=== PATIENT | male | born 1955 | race Two or more races ===

== ENCOUNTER 2017-10-06 20:46 | Emergency (ER) | payer SELFPAY ==
--- NOTE | 2017-10-06 21:06 | EDM.PDOC ---
ED HPI GENERAL MEDICAL PROBLEM - General Chief Complaint: Genitourinary Problem Stated Complaint: UNABLE TO URINE Time Seen by Provider: 10/06/17 21:01 - History of Present Illness INITIAL COMMENTS - FREE TEXT/NARRATIVE: HISTORY AND PHYSICAL: History of present illness: Patient 62-year-old male history of prostate problems who presents with concern of urinary retention he states he has not been able urinate for approximately 3 hours she's had some small urination prior to that he denies fever chills nausea vomiting or other complaints Review of systems: As per history of present illness and below otherwise all systems reviewed and negative. Past medical history: As per history of present illness and as reviewed below otherwise noncontributory. Surgical history: As per history of present illness and as reviewed below otherwise noncontributory. Social history: No reported history of drug or alcohol abuse. Family history: As per history of present illness and as reviewed below otherwise noncontributory. Physical exam: HEENT: Atraumatic, normocephalic, pupils reactive, negative for conjunctival pallor or scleral icterus, mucous membranes moist, throat clear, neck supple, nontender, trachea midline. Lungs: Clear to auscultation, breath sounds equal bilaterally, chest nontender. Heart: S1S2, regular, negative for clicks, rubs, or JVD. Abdomen: Soft, nondistended, mild tenderness suprapubically no rebound no guarding. Negative for masses or hepatosplenomegaly. Negative for costovertebral tenderness. Pelvis: Stable nontender. Genitourinary: Deferred. Rectal: Deferred. Extremities: Atraumatic, negative for cords or calf pain. Neurovascular unremarkable. Neuro: Awake, alert, oriented. Cranial nerves II through XII unremarkable. Cerebellum unremarkable. Motor and sensory unremarkable throughout. Exam nonfocal. Diagnostics: CBC CMP UA urine culture and sensitivity Therapeutics: Simpson catheter with leg bag Impression: #1 Urinary retention Definitive disposition and diagnosis as appropriate pending reevaluation and review of above. hypogastric Pain Score (Numeric/FACES): 4 - Related Data Allergies Allergy/AdvReac Type Severity Reaction Status Date / Time No Known Allergies Allergy Verified 10/06/17 21:54 ED ROS GENERAL - Review of Systems Review Of Systems: ROS reveals no pertinent complaints other than HPI. ED EXAM, GENERAL - Physical Exam Exam: See Below (See dictation) Course - Vital Signs Last Recorded V/S: Last Vital Signs Temp 37.4 C 10/06/17 20:46 Pulse 81 10/06/17 20:46 Resp 18 10/06/17 20:46 BP 184/92 H 10/06/17 20:46 Pulse Ox 95 10/06/17 20:46 - Orders/Labs/Meds Orders: Active Orders 24 hr Category Date Time Status Simpson Catheter Insertion [Insert Urinary Catheter] [OM. Care 10/06/17 21:15 Ordered PC] Q24H Simpson Catheter Insertion [Insert Urinary Catheter] [OM. Care 10/06/17 21:15 Ordered PC] Q24H Urinary Catheter Assessment [RC] ASDIRECTED Care 10/06/17 21:03 Active Urinary Catheter Assessment [RC] ASDIRECTED Care 10/06/17 21:03 Active CULTURE URINE [RM] Stat Lab 10/06/17 21:45 Ordered UA W/MICROSCOPIC [URIN] Stat Lab 10/06/17 21:45 Ordered Labs: Laboratory Tests 10/06/17 10/06/17 10/06/17 Range/Units 21:13 21:13 21:45 WBC 10.30 (4.0-11.0) K/uL RBC 4.63 (4.50-5.90) M/uL Hgb 14.0 (13.0-17.0) g/dL Hct 41.2 (38.0-50.0) % MCV 89.0 (80.0-98.0) fL MCH 30.2 (27.0-32.0) pg MCHC 34.0 (31.0-37.0) g/dL RDW Std Deviation 42.6 (28.0-62.0) fl RDW Coeff of Alex 13 (11.0-15.0) % Plt Count 243 (150-400) K/uL MPV 9.50 (7.40-12.00) fL Neut % (Auto) 54.8 (48.0-80.0) % Lymph % (Auto) 37.7 (16.0-40.0) % [place] % (Auto) 5.5 (0.0-15.0) % Eos % (Auto) 1.7 (0.0-7.0) % Baso % (Auto) 0.3 (0.0-1.5) % Neut # (Auto) 5.7 (1.4-5.7) K/uL Lymph # (Auto) 3.9 H (0.6-2.4) K/uL [place] # (Auto) 0.6 (0.0-0.8) K/uL Eos # (Auto) 0.2 (0.0-0.7) K/uL Baso # (Auto) 0.0 (0.0-0.1) K/uL Nucleated RBC % 0.0 /100WBC Nucleated RBCs # 0 K/uL Sodium 136 (136-148) mmol/L Potassium 3.4 L (3.5-5.1) mmol/L Chloride 102 (98-107) mmol/L Carbon Dioxide 23.1 (21.0-32.0) mmol/L BUN 12 (7.0-18.0) mg/dL Creatinine 0.9 (0.8-1.3) mg/dL Est Cr Clr Drug Dosing TNP Estimated GFR (MDRD) > 60.0 ml/min Glucose 120 H (74-106) mg/dL Calcium 8.8 (8.5-10.1) mg/dL Total Bilirubin 0.2 (0.2-1.0) mg/dL AST 16 (15-37) IU/L ALT 22 (14-63) IU/L Alkaline Phosphatase 54 (46-116) U/L Total Protein 8.0 (6.4-8.2) g/dL Albumin 3.7 (3.4-5.0) g/dL Globulin 4.3 H (2.0-3.5) g/dL Albumin/Globulin Ratio 0.9 L (1.3-2.8) Urine Color YELLOW Urine Appearance HAZY Urine pH 6.0 (5.0-8.0) Ur Specific [place] <= 1.005 (1.001-1.035) Urine Protein NEGATIVE (NEGATIVE) mg/dL Urine Glucose (UA) NEGATIVE (NEGATIVE) mg/dL Urine Ketones NEGATIVE (NEGATIVE) mg/dL Urine Occult Blood MODERATE (NEGATIVE) Urine Nitrite NEGATIVE (NEGATIVE) Urine Bilirubin NEGATIVE (NEGATIVE) Urine Urobilinogen 0.2 (<2.0) EU/dL Ur Leukocyte Esterase MODERATE (NEGATIVE) Urine RBC 2-4 (0-2/HPF) Urine WBC 20-25 (0-5/HPF) Ur Epithelial Cells RARE (NONE-FEW) Urine Bacteria 1+ H (NEGATIVE) Departure - Departure Time of Disposition: 22:46 Disposition: Home, Self-Care 01 Condition: Good Clinical Impression: UTI, Urinary tract infectious disease, Urinary retention - Discharge Information Referrals: PCP,Unknown [Primary Care Provider] - Forms: ED Department Discharge Additional Instructions: The following information is given to patients seen in the emergency department who are being discharged to home. This information is to outline your options for follow-up care. We provide all patients seen in our emergency department with a follow-up referral. The need for follow-up, as well as the timing and circumstances, are variable depending upon the specifics of your emergency department visit. If you don't have a primary care physician on staff, we will provide you with a referral. We always advise you to contact your personal physician following an emergency department visit to inform them of the circumstance of the visit and for follow-up with them and/or the need for any referrals to a consulting specialist. The emergency department will also refer you to a specialist when appropriate. This referral assures that you have the opportunity for followup care with a specialist. All of these measure are taken in an effort to provide you with optimal care, which includes your followup. Under all circumstances we always encourage you to contact your private physician who remains a resource for coordinating your care. When calling for followup care, please make the office aware that this follow-up is from your recent emergency room visit. If for any reason you are refused follow-up, please contact the [facility] emergency department at and asked to speak to the emergency department charge nurse. [facility] [address] [place] [id number] Cipro as prescribed leg bag Simpson as directed follow-up urology above call to schedule appointment return as needed as discussed - My Orders Last 24 Hours: My Active Orders 10/06/17 21:03 Urinary Catheter Assessment [RC] ASDIRECTED Urinary Catheter Assessment [RC] ASDIRECTED 10/06/17 21:15 Simpson Catheter Insertion [Insert Urinary Catheter] [OM.PC] Q24H Simpson Catheter Insertion [Insert Urinary Catheter] [OM.PC] Q24H 10/06/17 21:45 CULTURE URINE [RM] Stat UA W/MICROSCOPIC [URIN] Stat - Assessment/Plan Last 24 Hours: My Active Orders 10/06/17 21:03 Urinary Catheter Assessment [RC] ASDIRECTED Urinary Catheter Assessment [RC] ASDIRECTED 10/06/17 21:15 Simpson Catheter Insertion [Insert Urinary Catheter] [OM.PC] Q24H Simpson Catheter Insertion [Insert Urinary Catheter] [OM.PC] Q24H 10/06/17 21:45 CULTURE URINE [RM] Stat UA W/MICROSCOPIC [URIN] Stat
[2017-10-06 21:41] LABS: CHLORIDE,CL 102 mmol/L (98-107); SODIUM,NA 136 mmol/L (136-148)
== END 2017-10-06 23:15 | disposition home or self-care (01) ==
LOC: MW.ED 20:46
DX: N39.0 Urinary tract infection, site not specified (principal)
CPT/HCPCS: 36415; 80053; 81001; 85025; 87086; 87088; 87186; 99283

== ENCOUNTER 2017-10-07 21:03 | Emergency (ER) | payer SELFPAY | END 2017-10-07 21:30 | disposition left against medical advice (07) | LOC: MW.ED 21:03 | DX: Z53.21 Procedure and treatment not carried out due to patient leaving prior to being seen by health care provider (principal) ==

== ENCOUNTER 2017-10-14 15:20 | Inpatient (IN) | payer OTHER ==
[~2017-10-14 15:20] MED LIST: Ampicillin 2 GM in Sodium Chloride 0.9% 100 ML IV SCH; Lactated Ringers 1,000 ML IV SCH; Sodium Chloride 0.9% 10 ML Syringe FLUSH PRN; Sodium Chloride 0.9% 2.5 ML Syringe FLUSH PRN
[2017-10-14] MEDS: Ampicillin 2 GM in Sodium Chloride 0.9% 100 ML IV SCH ×2 (17:13→22:09)
[2017-10-15] MEDS: Ampicillin 2 GM in Sodium Chloride 0.9% 100 ML IV SCH ×4 (03:57→21:02)
[2017-10-15 06:23] LABS: CHLORIDE,CL 107 mmol/L (98-107); SODIUM,NA 140 mmol/L (136-148)
--- NOTE | 2017-10-15 08:57 | PCM.PREANE ---
Preanesthetic Assessment - Procedure Proposed Procedure: TURP - Anesthesia/Transfusion/Family Hx Anesthesia History: Prior Anesthesia Without Reaction Family History of Anesthesia Reaction: No Transfusion History: No Prior Transfusion(s) Intubation History: Unknown - Review of Systems General: No Symptoms Pulmonary: No Symptoms Cardiovascular: No Symptoms Gastrointestinal: No Symptoms Neurological: No Symptoms Other: Reports: None - Physical Assessment NPO Status Date: 10/14/17 NPO Status Time: 23:00 O2 Sat by Pulse Oximetry: 98 Respiratory Rate: 16 Vital Signs: Last Vital Signs Temp 98.0 F 10/15/17 08:46 Pulse 62 10/15/17 08:46 Resp 16 10/15/17 08:46 BP 145/77 H 10/15/17 08:46 Pulse Ox 98 10/15/17 08:46 Height: 6 ft Weight: 196 lb 6.91 oz ASA Class: 2 Mental Status: Alert & Oriented x3 Airway Class: Mallampati = 1 Dentition: Reports: Missing Tooth/Teeth, Caries Thyro-Mental Finger Breadths: 3 Mouth Opening Finger Breadths: 3 ROM/Head Extension: Limited/Partial (short neck) - Lab Values: Laboratory Last Values WBC 8.01 K/uL (4.0-11.0) 10/15/17 05:30 RBC 4.59 M/uL (4.50-5.90) 10/15/17 05:30 Hgb 13.7 g/dL (13.0-17.0) 10/15/17 05:30 Hct 41.3 % (38.0-50.0) 10/15/17 05:30 MCV 90.0 fL (80.0-98.0) 10/15/17 05:30 MCH 29.8 pg (27.0-32.0) 10/15/17 05:30 MCHC 33.2 g/dL (31.0-37.0) 10/15/17 05:30 RDW Std Deviation 43.7 fl (28.0-62.0) 10/15/17 05:30 RDW Coeff of Alex 13 % (11.0-15.0) 10/15/17 05:30 Plt Count 210 K/uL (150-400) 10/15/17 05:30 MPV 10.50 fL (7.40-12.00) 10/15/17 05:30 Neut % (Auto) 56.7 % (48.0-80.0) 10/15/17 05:30 Lymph % (Auto) 31.8 % (16.0-40.0) 10/15/17 05:30 [place] % (Auto) 7.4 % (0.0-15.0) 10/15/17 05:30 Eos % (Auto) 3.7 % (0.0-7.0) 10/15/17 05:30 Baso % (Auto) 0.4 % (0.0-1.5) 10/15/17 05:30 Neut # (Auto) 4.5 K/uL (1.4-5.7) 10/15/17 05:30 Lymph # (Auto) 2.6 K/uL (0.6-2.4) H 10/15/17 05:30 [place] # (Auto) 0.6 K/uL (0.0-0.8) 10/15/17 05:30 Eos # (Auto) 0.3 K/uL (0.0-0.7) 10/15/17 05:30 Baso # (Auto) 0.0 K/uL (0.0-0.1) 10/15/17 05:30 Nucleated RBC % 0.0 /100WBC 10/15/17 05:30 Nucleated RBCs # 0 K/uL 10/15/17 05:30 Sodium 140 mmol/L (136-148) 10/15/17 05:30 Potassium 4.3 mmol/L (3.5-5.1) 10/15/17 05:30 Chloride 107 mmol/L (98-107) 10/15/17 05:30 Carbon Dioxide 28.9 mmol/L (21.0-32.0) 10/15/17 05:30 BUN 15 mg/dL (7.0-18.0) 10/15/17 05:30 Creatinine 0.9 mg/dL (0.8-1.3) 10/15/17 05:30 Est Cr Clr Drug Dosing 91.01 mL/min 10/15/17 05:30 Estimated GFR (MDRD) > 60.0 ml/min 10/15/17 05:30 Glucose 108 mg/dL (74-106) H 10/15/17 05:30 Calcium 8.8 mg/dL (8.5-10.1) 10/15/17 05:30 - Allergies Allergies/Adverse Reactions: Allergies Allergy/AdvReac Type Severity Reaction Status Date / Time No Known Allergies Allergy Verified 10/08/17 07:37 - Blood Blood Available: No Product(s) Available: None - Anesthesia Plan Pre-Op Medication Ordered: None - Acknowledgements Anesthesia Type Planned: Spinal Pt an Appropriate Candidate for the Planned Anesthesia: Yes Alternatives and Risks of Anesthesia Discussed w Pt/Guardian: Yes Pt/Guardian Understands and Agrees with Anesthesia Plan: Yes PreAnesthesia Questionnaire - Past Health History Medical/Surgical History: Denies Medical/Surgical History HEENT History: Reports: None Cardiovascular History: Reports: None Respiratory History: Reports: None Gastrointestinal History: Reports: None Genitourinary History: Reports: None Musculoskeletal History: Reports: None Neurological History: Reports: None Psychiatric History: Reports: None Endocrine/Metabolic History: Reports: None Hematologic History: Reports: None Immunologic History: Reports: None Oncologic (Cancer) History: Reports: None Dermatologic History: Reports: None - Infectious Disease History Infectious Disease History: Reports: None - Past Surgical History Head Surgeries/Procedures: Reports: None Male Surgical History: Reports: None - SUBSTANCE USE Smoking Status *Q: Never Smoker Second Hand Smoke Exposure: No Recreational Drug Use History: No - HOME MEDS Home Medications: Home Meds Ciprofloxacin HCl [Cipro] 500 mg PO BID 10/08/17 [History] - CURRENT (IN HOUSE) MEDS Current Meds: Current Medications Lactated Ringer's (Ringers, Lactated) 1,000 mls @ 50 mls/hr IV ASDIRECTED [facility] Last Admin: 10/14/17 17:08 Dose: 50 mls/hr Ampicillin Sodium 2 gm/ Sodium (Chloride) 100 mls @ 200 mls/hr IV Q6H [facility] Last Admin: 10/15/17 03:57 Dose: 200 mls/hr Tobramycin 120 mg/ Sodium (Chloride) 53 mls @ 106 mls/hr IV Q12H [facility] Last Admin: 10/15/17 05:40 Dose: 106 mls/hr Sodium Chloride (Saline Flush) 10 ml FLUSH ASDIRECTED PRN PRN Reason: Keep Vein Open Sodium Chloride (Saline Flush) 2.5 ml FLUSH ASDIRECTED PRN PRN Reason: Keep Vein Open Discontinued Medications Ampicillin Sodium 2 gm/ Sodium (Chloride) 100 mls @ 200 mls/hr IV Q6H [facility] Last Admin: 10/14/17 17:47 Dose: Not Given Tobramycin 120 mg/ Sodium (Chloride) 103 mls @ 103 mls/hr IV Q12H [facility] Last Admin: 10/14/17 17:47 Dose: Not Given
[2017-10-15] MEDS ORDERED: Midazolam 1 MG/ML 2 ML SDV ONE (09:00)
[2017-10-15] MEDS ORDERED: Lidocaine 2% 5 ML SDV ONE (09:00)
[2017-10-15] MEDS ORDERED: Propofol 200 MG/20 ML SDV ONE (09:01)
[2017-10-15] MEDS ORDERED: fentaNYL 100 MCG/2 ML SDV ONE (09:01)
[2017-10-15] MEDS ORDERED: ePHEDrine 50 MG/ML SDV ONE (09:02)
[2017-10-15] MEDS ORDERED: Belladonna Alkaloids/Opium 16.2-30 MG Supp RECTAL PRN (11:57)
[2017-10-15] MEDS: D5 1/2 NS w/ 20 mEq/L KCl 1,000 ML IV SCH (13:14)
[2017-10-15] MEDS: Bacitracin Oint 28.35 GM Tube TOP SCH ×2 (13:15→21:00)
--- NOTE | 2017-10-15 13:24 | OR ---
SURGEON: Nicole Fleming M.D. DATE OF PROCEDURE: 10/15/2017 PREOPERATIVE DIAGNOSIS: Urine retention secondary to benign prostatic hypertrophy. POSTOPERATIVE DIAGNOSIS: Urine retention secondary to benign prostatic hypertrophy. OPERATION: TURP. DESCRIPTION OF THE PROCEDURE: The patient was given spinal anesthesia, placed in dorsal lithotomy position, prepped and draped in sterile drapes. The 28-Portuguese resectoscope was introduced into the bladder without difficulty. The inside of the bladder was examined and was normal. The prostate was then resected in the usual manner starting with the floor going on laterally and anteriorly. At the end of the resection, all prostatic chips were removed. Both ureteral orifices were intact. The area of the external sphincter was intact. Estimated blood loss was under 200 mL. The patient tolerated the procedure well and left the room in good condition. LUCIA / CHERISE /[id number]
[2017-10-15] MEDS: Docusate Sodium 100 MG Cap PO SCH (20:58)
[2017-10-16] MEDS: D5 1/2 NS w/ 20 mEq/L KCl 1,000 ML IV SCH (00:15)
[2017-10-16] MEDS: Ampicillin 2 GM in Sodium Chloride 0.9% 100 ML IV SCH ×4 (04:07→21:31)
[2017-10-16] MEDS: Bacitracin Oint 28.35 GM Tube TOP SCH ×3 (05:59→21:31)
[2017-10-16] MEDS: Docusate Sodium 100 MG Cap PO SCH ×2 (08:33→21:31)
--- NOTE | 2017-10-16 08:39 | PCM48HPAN ---
Post Anesthesia Note - EVALUATION WITHIN 48HRS OF ANESTHETIC Vital Signs in Normal Range: Yes Patient Participated in Evaluation: Yes Respiratory Function Stable: Yes Airway Patent: Yes Cardiovascular Function Stable: Yes Hydration Status Stable: Yes Pain Control Satisfactory: Yes Nausea and Vomiting Control Satisfactory: Yes Mental Status Recovered: Yes Resp Rate: 18
--- NOTE | 2017-10-16 09:13 | PCM.SN ---
- Free Text/Narrative Note: Doing well
--- NOTE | 2017-10-16 09:20 | PCM.SN ---
- Free Text/Narrative Note: Justification note Had a catheter in , has a tur drip running , needs IV antibiotics
[2017-10-16] MEDS ORDERED: Sodium Chloride 0.9% 10 ML Syringe FLUSH PRN (09:28)
[2017-10-16] MEDS ORDERED: Sodium Chloride 0.9% 2.5 ML Syringe FLUSH PRN (09:28)
[2017-10-17] MEDS: Ampicillin 2 GM in Sodium Chloride 0.9% 100 ML IV SCH ×2 (03:30→09:15)
[2017-10-17] MEDS: Bacitracin Oint 28.35 GM Tube TOP SCH (05:29)
[2017-10-17] MEDS: Docusate Sodium 100 MG Cap PO SCH (09:14)
--- NOTE | 2017-10-17 13:42 | DISCH ---
DATE OF DISCHARGE: PRIMARY CARE PHYSICIAN: Johnathon PCP HOSPITAL COURSE: A 62-year-old, who was seen in the office with urinary retention secondary to BPH. Arrangements were made for him to come and have a TURP, which he had done on October 15. Postoperatively, did well. The catheter was taken out on the second postop day. He was discharged on the second postop day. DISCHARGE MEDICATIONS: 1. Macrobid 100 mg twice a day for one week. 2. Colace 100 mg one p.o. b.i.d. for one month. Pathology is still pending. LUCIA LUONG /[id number]
== END 2017-10-17 13:30 | disposition home or self-care (01) | DRG 714 ==
LOC: MW.SDS 15:20 → MW.MS 15:23
PROVIDERS: ADMIT Urology; ATTEND Urology
PROC: 0VT08ZZ Resection of Prostate, Via Natural or Artificial Opening Endoscopic (ICD-10-PCS; principal; 2017-10-14)
DX: N40.1 Benign prostatic hyperplasia with lower urinary tract symptoms (principal); R33.8 Other retention of urine
CPT/HCPCS: 36415; 80048; 84132; 84295; 85018; 85025; 88305; A9270-GY; J0290; J2250; J2704; J3010; J3260; J3480; J7030; J7050; J7120

== ENCOUNTER 2018-10-17 10:26 | Emergency (ER) | payer MEDICARE, OTHER ==
[2018-10-17] MEDS ORDERED: Sodium Chloride 0.9% 1,000 ML IV ONE (11:05)
--- NOTE | 2018-10-17 11:14 | EDM.PDOC ---
ED HPI GENERAL MEDICAL PROBLEM - General Chief Complaint: General Stated Complaint: DIABETES Time Seen by Provider: 10/17/18 11:04 Source of Information: Reports: Patient, [employer] History Limitations: Reports: Language Barrier - History of Present Illness INITIAL COMMENTS - FREE TEXT/NARRATIVE: HISTORY AND PHYSICAL: History of present illness: Patient is solely speaking and presents with a friend who is translating for patient. Etymology Professor was offered but patient declines. Patient is a 63-year-old male presents to the ED today for concern of diabetes. Patient states over the past month he has noticed worsening increase in thirst and feels as if his mouth is dry. Patient denies any other symptoms at this time. Patient states he has a history of urinary tract infection but that denies any other health history. Patient denies fever, chills, chest pain, shortness of breath, or cough. Denies headache, neck stiff ness, change in vision, syncope, or near syncope. Denies nausea, vomiting, abdominal pain, diarrhea, constipation, or dysuria. Has not noted any blood in urine or stool. Patient has been eating and drinking appropriately. Review of systems: As per history of present illness and below otherwise all systems reviewed and negative. Past medical history: As per history of present illness and as reviewed below otherwise noncontributory. Surgical history: As per history of present illness and as reviewed below otherwise noncontributory. Social history: See social history for further information Family history: As per history of present illness and as reviewed below otherwise noncontributory. Physical exam: General: Patient is alert, oriented, and in no acute distress. Patient sitting comfortably on exam table. HEENT: Atraumatic, normocephalic, pupils equal and reactive bilaterally, negative for conjunctival pallor or scleral icterus, mucous membranes dry, TMs normal bilaterally, throat clear, neck supple, nontender, trachea midline. No drooling or trismus noted. No meningeal signs. No hot potato voice noted. Lungs: Clear to auscultation, breath sounds equal bilaterally, chest nontender. Heart: S1S2, regular rate and rhythm without overt murmur Abdomen: Soft, nondistended, nontender. Negative for masses or hepatosplenomegaly. Negative for costovertebral tenderness. Pelvis: Stable nontender. Genitourinary: Deferred. Rectal: Deferred. Skin: Intact, warm, dry. No lesions or rashes noted. Extremities: Atraumatic, negative for cords or calf pain. Neurovascular unremarkable. Neuro: Awake, alert, oriented. Cranial nerves II through XII unremarkable. Cerebellum unremarkable. Motor and sensory unremarkable throughout. Exam nonfocal. Notes: Dr. Rooney verbally involved in patient care Discussed the importance for follow-up to primary care provider. Voices understanding and is agreeable to plan of care. Denies any further questions or concerns at this time. Diagnostics: Bedside glucose, CBC, CMP, UA, blood ketone, ABG Therapeutics: Saline Prescription: Metformin Impression: Diabetes, new diagnosis Plan: 1. Take medication as prescribed. 2. Follow-up with primary care provider as discussed. 3. Return to the ED as needed and as discussed. Definitive disposition and diagnosis as appropriate pending reevaluation and review of above. - Related Data Allergies Allergy/AdvReac Type Severity Reaction Status Date / Time No Known Allergies Allergy Verified 10/17/18 10:59 Home Meds: Home Meds . [No Known Home Meds] 10/17/18 [History] Past Medical History - Past Health History Medical/Surgical History: Denies Medical/Surgical History HEENT History: Reports: None Cardiovascular History: Reports: None Respiratory History: Reports: None Gastrointestinal History: Reports: None Genitourinary History: Reports: None Musculoskeletal History: Reports: None Neurological History: Reports: None Psychiatric History: Reports: None Endocrine/Metabolic History: Reports: None Hematologic History: Reports: None Immunologic History: Reports: None Oncologic (Cancer) History: Reports: None Dermatologic History: Reports: None - Infectious Disease History Infectious Disease History: Reports: None - Past Surgical History Head Surgeries/Procedures: Reports: None GI Surgical History: Reports: Hernia, Inguinal Male Surgical History: Reports: None Social & Family History - Family History Family Medical History: Noncontributory - Tobacco Use Smoking Status *Q: Never Smoker - Caffeine Use Caffeine Use: Reports: None - Recreational Drug Use Recreational Drug Use: No ED ROS GENERAL - Review of Systems Review Of Systems: ROS reveals no pertinent complaints other than HPI. ED EXAM, GENERAL - Physical Exam Exam: See Below (See dictation) Course - Vital Signs Last Recorded V/S: Last Vital Signs Temp 36.5 C 10/17/18 10:54 Pulse 67 10/17/18 10:54 Resp 18 10/17/18 10:54 BP 153/76 H 10/17/18 10:54 Pulse Ox 96 10/17/18 10:54 - Orders/Labs/Meds Orders: Active Orders 24 hr Category Date Time Status Glucose [Blood Glucose Check, Bedside] [RC] ONETIME Care 10/17/18 11:05 Active Labs: Laboratory Tests 10/17/18 10/17/18 10/17/18 Range/Units 11:04 11:15 11:15 WBC 6.05 (4.0-11.0) K/uL RBC 4.60 (4.50-5.90) M/uL Hgb 14.0 (13.0-17.0) g/dL Hct 41.2 (38.0-50.0) % MCV 89.6 (80.0-98.0) fL MCH 30.4 (27.0-32.0) pg MCHC 34.0 (31.0-37.0) g/dL RDW Std Deviation 42.9 (28.0-62.0) fl RDW Coeff of Alex 13 (11.0-15.0) % Plt Count 166 (150-400) K/uL MPV 11.50 (7.40-12.00) fL Neut % (Auto) 57.6 (48.0-80.0) % Lymph % (Auto) 35.2 (16.0-40.0) % [place] % (Auto) 6.0 (0.0-15.0) % Eos % (Auto) 1.0 (0.0-7.0) % Baso % (Auto) 0.2 (0.0-1.5) % Neut # (Auto) 3.5 (1.4-5.7) K/uL Lymph # (Auto) 2.1 (0.6-2.4) K/uL [place] # (Auto) 0.4 (0.0-0.8) K/uL Eos # (Auto) 0.1 (0.0-0.7) K/uL Baso # (Auto) 0.0 (0.0-0.1) K/uL Nucleated RBC % 0.0 /100WBC Nucleated RBCs # 0 K/uL ABG pH (7.35-7.45) ABG pCO2 (35-45) mmHG ABG pO2 (75-100) mmHG ABG HCO3 (22-26) mEq/L ABG Total CO2 ABG Base Excess (-2.0-2.0) Sodium 138 (136-148) mmol/L Potassium 3.9 (3.5-5.1) mmol/L Chloride 103 (98-107) mmol/L Carbon Dioxide 24.1 (21.0-32.0) mmol/L BUN 11 (7.0-18.0) mg/dL Creatinine 0.7 L (0.8-1.3) mg/dL Est Cr Clr Drug Dosing 94.94 mL/min Estimated GFR (MDRD) > 60.0 ml/min Glucose 279 H (74-106) mg/dL POC Glucose 324 H (60-110) mg/dL Hemoglobin A1c (4.5-6.2) % Calcium 8.4 L (8.5-10.1) mg/dL Total Bilirubin 0.6 (0.2-1.0) mg/dL AST 30 (15-37) IU/L ALT 54 (14-63) IU/L Alkaline Phosphatase 65 (46-116) U/L Total Protein 7.2 (6.4-8.2) g/dL Albumin 3.6 (3.4-5.0) g/dL Globulin 3.6 (2.6-4.0) g/dL Albumin/Globulin Ratio 1.0 (0.9-1.6) Urine Color Urine Appearance Urine pH (5.0-8.0) Ur Specific Center (1.001-1.035) Urine Protein (NEGATIVE) mg/dL Urine Glucose (UA) (NEGATIVE) mg/dL Urine Ketones (NEGATIVE) mg/dL Urine Occult Blood (NEGATIVE) Urine Nitrite (NEGATIVE) Urine Bilirubin (NEGATIVE) Urine Urobilinogen (<2.0) EU/dL Ur Leukocyte Esterase (NEGATIVE) Ketones (NEG) 10/17/18 10/17/18 10/17/18 Range/Units 11:15 11:15 11:20 WBC (4.0-11.0) K/uL RBC (4.50-5.90) M/uL Hgb (13.0-17.0) g/dL Hct (38.0-50.0) % MCV (80.0-98.0) fL MCH (27.0-32.0) pg MCHC (31.0-37.0) g/dL RDW Std Deviation (28.0-62.0) fl RDW Coeff of Alex (11.0-15.0) % Plt Count (150-400) K/uL MPV (7.40-12.00) fL Neut % (Auto) (48.0-80.0) % Lymph % (Auto) (16.0-40.0) % [place] % (Auto) (0.0-15.0) % Eos % (Auto) (0.0-7.0) % Baso % (Auto) (0.0-1.5) % Neut # (Auto) (1.4-5.7) K/uL Lymph # (Auto) (0.6-2.4) K/uL [place] # (Auto) (0.0-0.8) K/uL Eos # (Auto) (0.0-0.7) K/uL Baso # (Auto) (0.0-0.1) K/uL Nucleated RBC % /100WBC Nucleated RBCs # K/uL ABG pH (7.35-7.45) ABG pCO2 (35-45) mmHG ABG pO2 (75-100) mmHG ABG HCO3 (22-26) mEq/L ABG Total CO2 ABG Base Excess (-2.0-2.0) Sodium (136-148) mmol/L Potassium (3.5-5.1) mmol/L Chloride (98-107) mmol/L Carbon Dioxide (21.0-32.0) mmol/L BUN (7.0-18.0) mg/dL Creatinine (0.8-1.3) mg/dL Est Cr Clr Drug Dosing mL/min Estimated GFR (MDRD) ml/min Glucose (74-106) mg/dL POC Glucose (60-110) mg/dL Hemoglobin A1c 12.9 H (4.5-6.2) % Calcium (8.5-10.1) mg/dL Total Bilirubin (0.2-1.0) mg/dL AST (15-37) IU/L ALT (14-63) IU/L Alkaline Phosphatase (46-116) U/L Total Protein (6.4-8.2) g/dL Albumin (3.4-5.0) g/dL Globulin (2.6-4.0) g/dL Albumin/Globulin Ratio (0.9-1.6) Urine Color YELLOW Urine Appearance CLEAR Urine pH 5.5 (5.0-8.0) Ur Specific Center 1.025 (1.001-1.035) Urine Protein NEGATIVE (NEGATIVE) mg/dL Urine Glucose (UA) 500 H (NEGATIVE) mg/dL Urine Ketones 40 H (NEGATIVE) mg/dL Urine Occult Blood NEGATIVE (NEGATIVE) Urine Nitrite NEGATIVE (NEGATIVE) Urine Bilirubin NEGATIVE (NEGATIVE) Urine Urobilinogen 0.2 (<2.0) EU/dL Ur Leukocyte Esterase NEGATIVE (NEGATIVE) Ketones NEGATIVE (NEG) 10/17/18 Range/Units 12:02 WBC (4.0-11.0) K/uL RBC (4.50-5.90) M/uL Hgb (13.0-17.0) g/dL Hct (38.0-50.0) % MCV (80.0-98.0) fL MCH (27.0-32.0) pg MCHC (31.0-37.0) g/dL RDW Std Deviation (28.0-62.0) fl RDW Coeff of Alex (11.0-15.0) % Plt Count (150-400) K/uL MPV (7.40-12.00) fL Neut % (Auto) (48.0-80.0) % Lymph % (Auto) (16.0-40.0) % [place] % (Auto) (0.0-15.0) % Eos % (Auto) (0.0-7.0) % Baso % (Auto) (0.0-1.5) % Neut # (Auto) (1.4-5.7) K/uL Lymph # (Auto) (0.6-2.4) K/uL [place] # (Auto) (0.0-0.8) K/uL Eos # (Auto) (0.0-0.7) K/uL Baso # (Auto) (0.0-0.1) K/uL Nucleated RBC % /100WBC Nucleated RBCs # K/uL ABG pH 7.409 (7.35-7.45) ABG pCO2 37 (35-45) mmHG ABG pO2 99 (75-100) mmHG ABG HCO3 23 (22-26) mEq/L ABG Total CO2 20.7 ABG Base Excess -1.1 (-2.0-2.0) Sodium (136-148) mmol/L Potassium (3.5-5.1) mmol/L Chloride (98-107) mmol/L Carbon Dioxide (21.0-32.0) mmol/L BUN (7.0-18.0) mg/dL Creatinine (0.8-1.3) mg/dL Est Cr Clr Drug Dosing mL/min Estimated GFR (MDRD) ml/min Glucose (74-106) mg/dL POC Glucose (60-110) mg/dL Hemoglobin A1c (4.5-6.2) % Calcium (8.5-10.1) mg/dL Total Bilirubin (0.2-1.0) mg/dL AST (15-37) IU/L ALT (14-63) IU/L Alkaline Phosphatase (46-116) U/L Total Protein (6.4-8.2) g/dL Albumin (3.4-5.0) g/dL Globulin (2.6-4.0) g/dL Albumin/Globulin Ratio (0.9-1.6) Urine Color Urine Appearance Urine pH (5.0-8.0) Ur Specific Center (1.001-1.035) Urine Protein (NEGATIVE) mg/dL Urine Glucose (UA) (NEGATIVE) mg/dL Urine Ketones (NEGATIVE) mg/dL Urine Occult Blood (NEGATIVE) Urine Nitrite (NEGATIVE) Urine Bilirubin (NEGATIVE) Urine Urobilinogen (<2.0) EU/dL Ur Leukocyte Esterase (NEGATIVE) Ketones (NEG) Meds: Medications Discontinued Medications Generic Name Dose Route Start Last Admin Trade Name Freq PRN Reason Stop Dose Admin Sodium Chloride 1,000 mls @ 999 mls/hr 10/17/18 11:05 10/17/18 11:31 Normal Saline IV 10/17/18 12:05 999 mls/hr STAT ONE Administration Departure - Departure Time of Disposition: 12:29 Disposition: Home, Self-Care 01 Clinical Impression: Newly diagnosed diabetes - Discharge Information Instructions: Type 2 Diabetes Mellitus, Diagnosis, Adult, Type 2 Diabetes Mellitus, Self Care, Adult, [id number] Referrals: PCP,Unknown [Primary Care Provider] - Forms: ED Department Discharge Additional Instructions: The following information is given to patients seen in the emergency department who are being discharged to home. This information is to outline your options for follow-up care. We provide all patients seen in our emergency department with a follow-up referral. The need for follow-up, as well as the timing and circumstances, are variable depending upon the specifics of your emergency department visit. If you don't have a primary care physician on staff, we will provide you with a referral. We always advise you to contact your personal physician following an emergency department visit to inform them of the circumstance of the visit and for follow-up with them and/or the need for any referrals to a consulting specialist. The emergency department will also refer you to a specialist when appropriate. This referral assures that you have the opportunity for follow-up care with a specialist. All of these measure are taken in an effort to provide you with optimal care, which includes your follow-up. Under all circumstances we always encourage you to contact your private physician who remains a resource for coordinating your care. When calling for follow-up care, please make the office aware that this follow-up is from your recent emergency room visit. If for any reason you are refused follow-up, please contact the [facility] Emergency Department at and asked to speak to the emergency department charge nurse. [facility] [address] [place], [place] [id number] [place] [address] 1. Take medication as prescribed. 2. Follow-up with primary care provider as discussed. 3. Return to the ED as needed and as discussed. - My Orders Last 24 Hours: My Active Orders 10/17/18 11:05 Glucose [Blood Glucose Check, Bedside] [] ONETIME - Assessment/Plan Last 24 Hours: My Active Orders 10/17/18 11:05 Glucose [Blood Glucose Check, Bedside] [RC] ONETIME
[2018-10-17 11:46] LABS: HEMOGLOBIN A1C 12.9 % (4.5-6.2)
[2018-10-17 11:48] LABS: CHLORIDE,CL 103 mmol/L (98-107); SODIUM,NA 138 mmol/L (136-148)
== END 2018-10-17 12:41 | disposition home or self-care (01) ==
LOC: MW.ED 10:26
DX: E11.9 Type 2 diabetes mellitus without complications (principal)
CPT/HCPCS: 36415; 36600; 80053; 81003; 82009; 82803; 82962; 83036; 85025; 96360; 99284; J7040; 99283

== ENCOUNTER 2019-12-02 19:33 | Emergency (ER) | payer MEDICARE ==
--- NOTE | 2019-12-02 19:41 | EDM.PDOC ---
ED HPI GENERAL MEDICAL PROBLEM - General Chief Complaint: General Stated Complaint: MEDICATION REFILL Time Seen by Provider: 12/02/19 19:35 Source of Information: Reports: Patient History Limitations: Reports: No Limitations - History of Present Illness INITIAL COMMENTS - FREE TEXT/NARRATIVE: HISTORY AND PHYSICAL: History of present illness: Patient is a 64-year-old male who presents to the emergency room requesting to have his metformin refilled. Patient is a type II diabetic, states he has been out of his medication for several days. Otherwise he is asymptomatic and offers no current complaints or concerns. Patient denies any fever, chills, headache, change in vision, syncope or near syncope. Denies any chest pain, back pain, shortness of breath or cough. Denies any abdominal pain, nausea, vomiting, diarrhea, constipation or dysuria. Has not noted any blood in urine or stool. Patient has been eating and drinking appropriately. Translation services were used as he is primarily Swazi Speaking Review of systems: As per history of present illness and below otherwise all systems reviewed and negative. Past medical history: As per history of present illness and as reviewed below otherwise noncontributory. Surgical history: As per history of present illness and as reviewed below otherwise noncontributory. Social history: See social history for further information Family history: As per history of present illness and as reviewed below otherwise noncontributory. Physical exam: General: Well-developed and well-nourished 64-year-old male. Alert and oriented. Nontoxic-appearing and in no acute distress. HEENT: Atraumatic, normocephalic, pupils equal and reactive bilaterally, negative for conjunctival pallor or scleral icterus, mucous membranes moist, TMs normal bilaterally, throat clear, neck supple, nontender, trachea midline. No drooling or trismus noted. No meningeal signs. No hot potato voice noted. Lungs: Clear to auscultation, breath sounds equal bilaterally, chest nontender. Heart: S1S2, regular rate and rhythm without overt murmur Abdomen: Soft, nondistended, nontender. Skin: Intact, warm, dry. No lesions or rashes noted. Extremities: Atraumatic, moves all extremities per self without difficulty or deficits, negative for cords or calf pain. Neurovascular unremarkable. Neuro: Awake, alert, oriented. Cranial nerves II through XII unremarkable. Cerebellum unremarkable. Motor and sensory unremarkable throughout. Exam nonfocal. Notes: Patient declines any need for diagnostics. We will refill his medications. We did have to have education on the need for follow-up with a primary care provider. Supportive care measures were reviewed and discussed. Voices understanding and is agreeable to plan of care. Denies any further questions or concerns at this time. Diagnostics: Bedside glucose Therapeutics: None Prescription: Lisinopril Pravastatin Metformin Impression: Encounter for medication refill Plan: 1. Make sure you are adhering to a diabetic diet to help manage your blood sugars. Take your medication as prescribed. 2. Follow-up with a primary care provider for further medication refills. 3. Return to the emergency room as needed and as discussed. Definitive disposition and diagnosis as appropriate pending reevaluation and review of above. - Related Data Allergies Allergy/AdvReac Type Severity Reaction Status Date / Time No Known Allergies Allergy Verified 12/02/19 19:45 Home Meds: Home Meds Pravastatin [Pravachol] 20 mg PO BEDTIME 30 Days #30 tab 12/02/19 [Rx] lisinopriL [Lisinopril] 2.5 mg PO DAILY 30 Days #30 tablet 12/02/19 [Rx] metFORMIN HCl [Metformin HCl] 1,000 mg PO DAILY 30 Days #30 tab 12/02/19 [Rx] Past Medical History - Past Health History Medical/Surgical History: Denies Medical/Surgical History HEENT History: Reports: None Cardiovascular History: Reports: None Respiratory History: Reports: None Gastrointestinal History: Reports: None Genitourinary History: Reports: None Musculoskeletal History: Reports: None Neurological History: Reports: None Psychiatric History: Reports: None Endocrine/Metabolic History: Reports: None Hematologic History: Reports: None Immunologic History: Reports: None Oncologic (Cancer) History: Reports: None Dermatologic History: Reports: None - Infectious Disease History Infectious Disease History: Reports: None - Past Surgical History Head Surgeries/Procedures: Reports: None GI Surgical History: Reports: Hernia, Inguinal Male Surgical History: Reports: None Social & Family History - Family History Family Medical History: Noncontributory - Caffeine Use Caffeine Use: Reports: None ED ROS GENERAL - Review of Systems Review Of Systems: Comprehensive ROS is negative, except as noted in HPI. ED EXAM, GENERAL - Physical Exam Exam: See Below (See dictation) Course - Vital Signs Last Recorded V/S: Last Vital Signs Temp 97.6 F 12/02/19 19:49 Pulse 99 12/02/19 19:49 Resp 18 12/02/19 19:49 BP 130/84 12/02/19 19:49 Pulse Ox 93 L 12/02/19 19:49 - Orders/Labs/Meds Orders: Active Orders 24 hr Category Date Time Status Glucose [Blood Glucose Check, Bedside] [RC] ONETIME Care 12/02/19 19:44 Active Departure - Departure Time of Disposition: 19:55 Disposition: Home, Self-Care 01 Clinical Impression: Encounter for medication refill - Discharge Information Prescriptions: lisinopriL [Lisinopril] 2.5 mg PO DAILY 30 Days #30 tablet metFORMIN HCl [Metformin HCl] 1,000 mg PO DAILY 30 Days #30 tab Pravastatin [Pravachol] 20 mg PO BEDTIME 30 Days #30 tab Forms: ED Department Discharge Additional Instructions: The following information is given to patients seen in the emergency department who are being discharged to home. This information is to outline your options for follow-up care. We provide all patients seen in our emergency department with a follow-up referral. The need for follow-up, as well as the timing and circumstances, are variable depending upon the specifics of your emergency department visit. If you don't have a primary care physician on staff, we will provide you with a referral. We always advise you to contact your personal physician following an emergency department visit to inform them of the circumstance of the visit and for follow-up with them and/or the need for any referrals to a consulting specialist. The emergency department will also refer you to a specialist when appropriate. This referral assures that you have the opportunity for follow-up care with a specialist. All of these measure are taken in an effort to provide you with optimal care, which includes your follow-up. Under all circumstances we always encourage you to contact your private physician who remains a resource for coordinating your care. When calling for follow-up care, please make the office aware that this follow-up is from your recent emergency room visit. If for any reason you are refused follow-up, please contact the [facility] Emergency Department at and asked to speak to the emergency department charge nurse. [facility] [address] [place] [address] [facility] [address] [place] [address] 1. Make sure you are adhering to a diabetic diet to help manage your blood sugars. Take your medication as prescribed. 2. Follow-up with a primary care provider for further medication refills. 3. Return to the emergency room as needed and as discussed. Sepsis Event Note (ED) - Focused Exam Vital Signs: Vital Signs Temp Pulse Resp BP Pulse Ox 12/02/19 19:49 97.6 F 99 18 130/84 93 L - My Orders Last 24 Hours: My Active Orders 12/02/19 19:44 Glucose [Blood Glucose Check, Bedside] [RC] ONETIME - Assessment/Plan Last 24 Hours: My Active Orders 12/02/19 19:44 Glucose [Blood Glucose Check, Bedside] [RC] ONETIME
== END 2019-12-02 20:03 | disposition home or self-care (01) ==
LOC: MW.ED 19:33
DX: E11.9 Type 2 diabetes mellitus without complications (principal); Z76.0 Encounter for issue of repeat prescription; Z79.899 Other long term (current) drug therapy; Z79.84 Long term (current) use of oral hypoglycemic drugs
CPT/HCPCS: 82962; 99282

== ENCOUNTER 2019-12-24 19:25 | Emergency (ER) | payer MEDICARE ==
--- NOTE | 2019-12-24 20:06 | EDM.PDOC ---
ED HPI GENERAL MEDICAL PROBLEM - General Stated Complaint: SPOKE WITH NURSE Time Seen by Provider: 12/24/19 19:58 - History of Present Illness INITIAL COMMENTS - FREE TEXT/NARRATIVE: Patient presents here for a medication refill he has no complaints. Apparently he has no primary care doctor nursing staff worked extensively with him to set him up with the local primary care and he has been educated on the appropriateness of his presentation to the emergency department after hours requesting a refill. No complaints he has a history of diabetes hypertension and high cholesterol history of present illness: [] Review of systems: As per history of present illness and below otherwise all systems reviewed and negative. Past medical history: As per history of present illness and as reviewed below otherwise noncontributory. Surgical history: As per history of present illness and as reviewed below otherwise noncontributory. Social history: No reported history of drug or alcohol abuse. Family history: As per history of present illness and as reviewed below otherwise noncontributory. Physical exam: HEENT: Atraumatic, normocephalic, pupils reactive, negative for conjunctival pallor or scleral icterus, mucous membranes moist, throat clear, neck supple, nontender, trachea midline. Lungs: Clear to auscultation, breath sounds equal bilaterally, chest nontender. Heart: S1S2, regular, negative for clicks, rubs, or JVD. Abdomen: Soft, nondistended, nontender. Negative for masses or hepatosplenomegaly. Negative for costovertebral tenderness. Pelvis: Stable nontender. Genitourinary: Deferred. Rectal: Deferred. Extremities: Atraumatic, negative for cords or calf pain. Neurovascular unremarkable. Neuro: Awake, alert, oriented. Cranial nerves II through XII unremarkable. Cerebellum unremarkable. Motor and sensory unremarkable throughout. Exam nonfocal. Diagnostics: [] Therapeutics: [] Impression: [] Plan: [] Definitive disposition and diagnosis as appropriate pending reevaluation and review of above. - Related Data Allergies Allergy/AdvReac Type Severity Reaction Status Date / Time No Known Allergies Allergy Verified 12/02/19 19:45 Home Meds: Home Meds Pravastatin [Pravachol] 20 mg PO BEDTIME 30 Days #30 tab 12/02/19 [Rx] lisinopriL [Lisinopril] 2.5 mg PO DAILY 30 Days #30 tablet 12/02/19 [Rx] metFORMIN HCl [Metformin HCl] 1,000 mg PO DAILY 30 Days #30 tab 12/02/19 [Rx] Past Medical History - Past Health History Medical/Surgical History: Denies Medical/Surgical History HEENT History: Reports: None Cardiovascular History: Reports: None Respiratory History: Reports: None Gastrointestinal History: Reports: None Genitourinary History: Reports: None Musculoskeletal History: Reports: None Neurological History: Reports: None Psychiatric History: Reports: None Endocrine/Metabolic History: Reports: None Hematologic History: Reports: None Immunologic History: Reports: None Oncologic (Cancer) History: Reports: None Dermatologic History: Reports: None - Infectious Disease History Infectious Disease History: Reports: None - Past Surgical History Head Surgeries/Procedures: Reports: None GI Surgical History: Reports: Hernia, Inguinal Male Surgical History: Reports: None Social & Family History - Family History Family Medical History: Noncontributory - Caffeine Use Caffeine Use: Reports: None ED ROS GENERAL - Review of Systems Review Of Systems: See Below ED EXAM, GENERAL - Physical Exam Exam: See Below Course - Vital Signs Text/Narrative:: We will refill the meds. Departure - Departure Time of Disposition: 20:06 Disposition: Home, Self-Care 01 Condition: Good Clinical Impression: Medication refill - Discharge Information *PRESCRIPTION DRUG MONITORING PROGRAM REVIEWED*: Not Applicable *COPY OF PRESCRIPTION DRUG MONITORING REPORT IN PATIENT HOSSEIN: Not Applicable Referrals: PCP,None [Primary Care Provider] - Additional Instructions: The following information is given to patients seen in the emergency department who are being discharged to home. This information is to outline your options for follow-up care. We provide all patients seen in our emergency department with a follow-up referral. The need for follow-up, as well as the timing and circumstances, are variable depending upon the specifics of your emergency department visit. If you don't have a primary care physician on staff, we will provide you with a referral. We always advise you to contact your personal physician following an emergency department visit to inform them of the circumstance of the visit and for follow-up with them and/or the need for any referrals to a consulting specialist. The emergency department will also refer you to a specialist when appropriate. This referral assures that you have the opportunity for follow-up care with a specialist. All of these measure are taken in an effort to provide you with optimal care, which includes your follow-up. Under all circumstances we always encourage you to contact your private physician who remains a resource for coordinating your care. When calling for follow-up care, please make the office aware that this follow-up is from your recent emergency room visit. If for any reason you are refused follow-up, please contact the [facility] Emergency Department at and asked to speak to the emergency department charge nurse. [facility] - Primary Care [address] [place] [address] [id number] [facility] [address] [place] [id number]
[2019-12-25] MEDS ORDERED: LISINOPRIL 2.5 MG PO SCH (09:00)
== END 2019-12-24 20:30 | disposition home or self-care (01) ==
LOC: MW.ED 19:25
DX: Z76.0 Encounter for issue of repeat prescription (principal); E11.9 Type 2 diabetes mellitus without complications; I10 Essential (primary) hypertension; E78.00 Pure hypercholesterolemia, unspecified; Z79.899 Other long term (current) drug therapy
CPT/HCPCS: 99281; 99282

== ENCOUNTER 2020-01-14 18:59 | Emergency (ER) | payer MEDICARE ==
--- NOTE | 2020-01-14 21:54 | EDM.PDOC ---
ED HPI GENERAL MEDICAL PROBLEM - General Chief Complaint: Medication Administration Stated Complaint: MEDICATION REFILL Time Seen by Provider: 01/14/20 21:31 - History of Present Illness INITIAL COMMENTS - FREE TEXT/NARRATIVE: HISTORY AND PHYSICAL: History of present illness: This is a 64-year-old gentleman with history significant for hypertension, diabetes, high cholesterol who presents ER today requesting a medication refill for all his pills. Patient was seen in the ED here and was given prescriptions for last 1-month and instructed to call internal medicine clinic for an appointment. Patient reports he has not done that. At this time the patient without any other complaints. Patient has any recent fevers, shakes, chills, nausea, vomiting, diarrhea, chest pain, shortness of breath, lower extremity edema, change in urinary symptoms. Patient reports his last dose of his medications was this morning. Review of systems: As per history of present illness and below otherwise all systems reviewed and negative. Past medical history: As per history of present illness and as reviewed below otherwise noncontributory. Surgical history: As per history of present illness and as reviewed below otherwise noncon tributory. Social history: No reported history of drug or alcohol abuse. Family history: As per history of present illness and as reviewed below otherwise noncontributory. Physical exam: Constitutional: Patient is oriented to person, place, and time. Appears well- developed and well-nourished. No distress. HEENT: Moist mucous membranes Head: Normocephalic and atraumatic Eyes: Right eye exhibits no discharge. Left eye exhibits no discharge. No scleral icterus Neck: Normal range of motion. No tracheal deviation present. Cardiovascular: Normal rate and regular rhythm. Pulmonary: Effort normal, no respiratory distress. Abdominal: No distention Musculoskeletal: Normal range of motion Neurologic: Alert and oriented to person, place and time. Skin: [place], warm and dry. Psychiatric: Normal mood and affect. Behavior is normal. Judgment and thought content normal. Nursing note and vital signs have been reviewed Assessment and plan 64-year-old gentleman who presents to the ER today requesting assistance with medication refill prescriptions. Patient had been seen in the ED recently and was given refills for his medications as well as instructions to follow-up with internal medicine clinic. Patient reports he did not do so. I have had a long conversation through the haz tech line stressing the importance that he call the internal medicine clinic in order to m cata an appointment to see them. Patient will be discharged with refills for his medications x1 month with instructions to call the internal medicine clinic to make an appointment. I have discussed with him the need to have long-term follow-up with a primary care physician rather than sporadic care in the emergency department. Patient is verbalized understanding of this. Reassessment at the time of disposition demonstrates that the patient is in no acute distress. The patient has remained stable throughout the entire ED visit and is without objective evidence for acute process requiring urgent intervention or hospitalization. The patient is stable for discharge, counseling is provided as documented above, discussed symptomatic treatment and specific conditions for return. I have spoken with the patient/caregive and discussed todays findings, in addition to providing specific details for the plan of care. Questions are answered and there is agreement with the plan. - Related Data Allergies Allergy/AdvReac Type Severity Reaction Status Date / Time No Known Allergies Allergy Verified 12/24/19 20:09 Home Meds: Home Meds Pravastatin [Pravachol] 20 mg PO BEDTIME 30 Days #30 tab 12/24/19 [Rx] lisinopriL [Lisinopril] 2.5 mg PO DAILY 30 Days #30 tablet 12/24/19 [Rx] metFORMIN HCl [Metformin HCl] 1,000 mg PO DAILY 30 Days #30 tab 12/24/19 [Rx] Pravastatin [Pravachol] 20 mg PO BEDTIME #30 tab 01/14/20 [Rx] lisinopriL [Lisinopril] 2.5 mg PO DAILY #30 tablet 01/14/20 [Rx] metFORMIN HCl [Metformin HCl] 1,000 mg PO DAILY #30 tablet 01/14/20 [Rx] Past Medical History - Past Health History Medical/Surgical History: Denies Medical/Surgical History HEENT History: Reports: None Cardiovascular History: Reports: Other (See Below) Other Cardiovascular History: on a medication that he thinks is for his lungs does not know for sure, has rx for hypertensive medications Respiratory History: Reports: None Gastrointestinal History: Reports: None Genitourinary History: Reports: None Musculoskeletal History: Reports: None Neurological History: Reports: None Psychiatric History: Reports: None Endocrine/Metabolic History: Reports: Diabetes, Type II Hematologic History: Reports: None Immunologic History: Reports: None Oncologic (Cancer) History: Reports: None Dermatologic History: Reports: None - Infectious Disease History Infectious Disease History: Reports: None - Past Surgical History Head Surgeries/Procedures: Reports: None GI Surgical History: Reports: Hernia, Inguinal Male Surgical History: Reports: None Social & Family History - Family History Family Medical History: Noncontributory - Tobacco Use Smoking Status *Q: Never Smoker Second Hand Smoke Exposure: No - Caffeine Use Caffeine Use: Reports: Coffee - Recreational Drug Use Recreational Drug Use: No ED ROS GENERAL - Review of Systems Review Of Systems: Comprehensive ROS is negative, except as noted in HPI. ED EXAM, GENERAL - Physical Exam Exam: See Below Course - Vital Signs Last Recorded V/S: Last Vital Signs Temp 98.3 F 01/14/20 21:14 Pulse 97 01/14/20 21:14 Resp 20 01/14/20 21:14 BP 182/89 H 01/14/20 21:14 Pulse Ox 97 01/14/20 21:14 Departure - Departure Time of Disposition: 21:49 Disposition: Home, Self-Care 01 Condition: Good Clinical Impression: Encounter for medication refill, Hypertension - Discharge Information Instructions: Hypertension, Adult, [id number] Referrals: PCP,None [Primary Care Provider] - Additional Instructions: You were seen and evaluated today in the ER secondary to wanting a refill of your medications. As we discussed through the translation line, you will need to call the internal medicine clinic to get a primary care physician so that they can provide you the best long-term care. [facility] - Internal Medicine [address] [place] [address] The following information is given to patients seen in the emergency department who are being discharged to home. This information is to outline your options for follow-up care. We provide all patients seen in our emergency department wi th a follow-up referral. The need for follow-up, as well as the timing and circumstances, are variable depending upon the specifics of your emergency department visit. If you don't have a primary care physician on staff, we will provide you with a referral. We always advise you to contact your personal physician following an emergency department visit to inform them of the circumstance of the visit and for follow-up with them and/or the need for any referrals to a consulting specialist. The emergency department will also refer you to a specialist when appropriate. This referral assures that you have the opportunity for follow-up care with a specialist. All of these measure are taken in an effort to provide you with optimal care, which includes your follow-up. Under all circumstances we always encourage you to contact your private physician who remains a resource for coordinating your care. When calling for follow-up care, please make the office aware that this follow-up is from your recent emergency room visit. If for any reason you are refused follow-up, please contact the [facility] Emergency Department at and asked to speak to the emergency department charge nurse. Sepsis Event Note (ED) - Evaluation Sepsis Screening Result: No Definite Risk - Focused Exam Vital Signs: Vital Signs Temp Pulse Resp BP Pulse Ox 01/14/20 21:14 98.3 F 97 20 182/89 H 97
== END 2020-01-14 22:21 | disposition home or self-care (01) ==
LOC: MW.ED 18:59
DX: I10 Essential (primary) hypertension (principal); Z76.0 Encounter for issue of repeat prescription; E11.9 Type 2 diabetes mellitus without complications; E78.00 Pure hypercholesterolemia, unspecified; Z79.899 Other long term (current) drug therapy; Z79.84 Long term (current) use of oral hypoglycemic drugs
CPT/HCPCS: 99281; 99282